=== PATIENT | male | born 1965 | race Caucasian/White ===

== ENCOUNTER → 2017-05-31 | Outpatient (CLI) | payer OTHER ==
[~2017-05-31] MED LIST: ALBUTEROL17 GM INH; AMITRYPTYLINE PO; ATARAX PO; CITRATE OF MAG296 ML PO; CLARITIN10 MG PO; EC-NAPROSYN500 MG PO; FLEXERIL PO; FLONASE 0.05% N16 GM; GUAIFENESIN600 M1 PO; IMDUR-ER30 M1 PO; KETOPROFEN PO; LEVAQUIN750 M1 PO; LEVAQUIN750 MG PO; LEVOTHYROXINE137 MCG PO; NO MEDICATIONS; OMEPRAZOLE40 M1 PO; PREDNISONE PO; PROZAC PO; SPIRIVA18 MCG INH; SYMBICORT INH; VICODIN PO; VITAMIN B12-FO1 EACH PO; ZANTAC PO
--- NOTE | ~2017-05-31 | CR72 ---
[facility] A Service of [facility] & [facility] RADIOLOGY TEXT RESULTS PATIENT: NATALY GANNON LOCATION: [facility] : 67 UNIT #: [id number] AGE: [address]: Darline Sanchez MD SEX: M ORDER DR: [id number] [facility] [address] [place], [place] [address] [id number] MR#: [id number] Acc #: [id number] NAME: NATALY GANNON : 1965 SEX: M STUDY DATE/TIME: 05/31/2017 14:23 UNIT: [facility] ROOM: STUDY DESCRIPTION: CR Chest Single View Portable Attending Physician: Darline Sanchez M.D. Referring Physician: Darline Sanchez M.D. Ordering Physician: Darline Sanchez M.D. Primary Care Physician: Desirae Brady M.D. MEDICAL IMAGING REPORT This report is preliminary unless electronic signature is present exam Frontal chest 05/31/2017 INDICATIONS 52-year-old male with history of cough, chest pain, congestion symptoms a week. Tobacco abuse 30 years. TECHNIQUE: Frontal chest performed and compared with 09/23/2015. FINDINGS Cardiac silhouette is within normal limits. The vascularity is unremarkable. There is no effusion, pneumothorax or dense consolidation. There is some haziness in the left lung base that does not to fully obscure the left heart border or the left hemidiaphragm most characteristic of atelectasis rather than faint infiltrate but should be correlated clinically. In the omn-hd-qbweu lung zone on the right. There is a 1 cm nodular opacity interposed between the posterior right eighth and ninth ribs. This appears to have been present on the prior chest x-ray of 09/23/2015 and is therefore likely to be benign and could even represent a nipple shadow. Given the history of tobacco abuse, this would be best further assessed with a non-emergent chest CT for better characterization. Impression 1. There is faint haziness in the left lung base favored to represent atelectasis rather than faint pneumonia for the reasons described above. Correlate with physical exam findings. 2. Chronic-appearing lung changes most characteristic of scarring in the lung apices right greater than left. 3. There is a 1 cm nodular density in the imn-ef-qdlzo lung zone on the right not definitively calcified but probably also present on STS. [facility] A Service of [facility] & [facility] RADIOLOGY TEXT RESULTS PATIENT: NATALY GANNON LOCATION: [facility] : 67 UNIT #: [id number] AGE: [address]: Darline Sanchez MD SEX: M ORDER DR: the prior chest x-ray of 09/23/2015. This is technically indeterminate. Given the history of tobacco abuse, this would best characterized with a non-emergent chest CT for further assessment. Dictated by... Shaji Bolaños M.D. THIS IS AN ELECTRONICALLY VERIFIED REPORT Shaji Bolaños M.D. at 06/02/2017 3:28 PM Sophy TD: 06/01/2017 11:34 JOB #: [id number] MEDICAL IMAGING REPORT Page 1 of 1 COPY
== END | disposition home or self-care (01) ==
LOC: CRAD 14:09
DX: J18.9 Pneumonia, unspecified organism (principal); R91.1 Solitary pulmonary nodule; J98.4 Other disorders of lung
CPT/HCPCS: 71010